=== PATIENT | male | born 1980 | race Two or more races ===

== ENCOUNTER 2018-12-31 12:58 | Emergency (ER) | payer OTHER ==
[~2018-12-31] VITALS: Ht 177.8 cm; Wt 92.1 kg
--- NOTE | 2018-12-31 13:20 | NUR ---
[id number], FROM [facility] C/O ABD PAIN SINCE SATURDAY, AND RECTAL BLEEDING. PT IS AMBULATORY, AOX4, HYPERTENSIVE, RR EVEN AND UNLABORED ON RA. SKIN INTACT, NO ACUTE DISTRESS NOTED. HOOKED TO MONITOR AND MADE COMFORTABLE. READY FOR EVAL.
[2018-12-31] MEDS ORDERED: IV NS 0.9% 1,000 ML BAG IV ONE (13:30)
[2018-12-31] MEDS ORDERED: PANTOPRAZOLE 40 MG VIAL IV ONE (13:30)
[2018-12-31] MEDS ORDERED: PANTOPRAZOLE 40 MG VIAL ONE (13:40)
[2018-12-31 13:53] LABS: CALCIUM, SERUM 9.3 mg/dL (8.5-10.1); CREATININE 0.9 mg/dL (0.6-1.3); POTASSIUM 3.5 mmol/L (3.5-5.1)
[2018-12-31 13:59] LABS: ALBUMIN 3.8 g/dL (3.4-5.0); BILIRUBIN,DIRECT 1.3 mg/dL (0.0-0.2); BILIRUBIN,TOTAL 6.2 mg/dL (0.2-1.0); TOTAL PROTEIN, SERUM 8.1 g/dL (6.4-8.2)
[2018-12-31 14:45] LABS: HEMATOCRIT 22 % (39-51); HEMOGLOBIN 7.7 g/dL (13.5-17.5); MEAN CORPUSCULAR HGB CONC 35 g/dl (31.0-36.0); MEAN CORPUSCULAR VOLUME 104 fL (80-96); PLATELET COUNT (AUTO) 95 /CMM (150-450); WHITE BLOOD COUNT (AUTO) 2.8 K/uL (4.3-11.0)
[2018-12-31] MEDS ORDERED: OCTREOTIDE 50 MCG/ML AMPUL SQ ONE (15:00)
[2018-12-31] MEDS ORDERED: OCTREOTIDE 50 MCG in IV NS 0.9% 50 ML IV ONE (15:00)
--- NOTE | 2018-12-31 15:11 | NUR ---
PT PROVIDED WITH ITEMS FOR ORAL CARE.
--- NOTE | 2018-12-31 15:17 | NUR ---
CALLED [facility]
[2018-12-31 15:27] LABS: BAND % (MANUAL) 2 % (0.0-5.0); LYMPHOCYTES % (MANUAL) 12 % (16-48); MONOCYTES % (MANUAL) 10 % (0-11.0); NEUTROPHILS % (MANUAL) 76 (42-76)
[2018-12-31] MEDS ORDERED: OCTREOTIDE 1,250 MCG in IV NS 0.9% 247.5 ML IV PRN (15:30)
--- NOTE | 2018-12-31 15:59 | NUR ---
TRANSFER INFO: GOING TO [facility] [phone] ER ACCEPTING MD JULIETTE MASCORRO PRN WILL BE HERE [id number]
--- NOTE | 2018-12-31 16:00 | NUR ---
Patient is resting comfortably in bed with eyes closed. Easily aroused. VSS
--- NOTE | 2018-12-31 17:00 | NUR ---
BLOOD TRANSFUSION STARTED IV RAC 18G AT 75ML/HR . VITALS ARE TEMP 98.3, HR 100, R 18, BP 137/93, PAIN 6/10 WHICH IS TOLERABLE FOR PT. WILL CONT TO MONITOR.
--- NOTE | 2018-12-31 17:15 | NUR ---
NO EVIDENCE OF TRANSFUSION REACTION AFTER FIRST 15 MIN. RATE INCREASED TO 300ML/HR PER CHARGE NURSE. VITALS ARE TEMP 98.2, HR 113, R 22, BP 143/70, PAIN 6/10. HR RATE > 100 IS PT BASELINE. WILL CONT TO MONITOR
--- NOTE | 2018-12-31 19:05 | NUR ---
2ND UNIT OF BLOOD STARTED. VSS. WILL MONITOR FOR NEXT 15 MIN
--- NOTE | 2018-12-31 20:12 | NUR ---
SPOKE WITH [facility] REGARDING CONTINUING IV INFUSION. THEY WILL SPEAK WITH ACCEPTING PHYSICIAN AND CALL US BACK.
--- NOTE | 2018-12-31 20:40 | NUR ---
BLOOD TRANSFUSION COMPLETE, PT DENEEN WELL. OCTREOTIDE CONTINUES INFUSING. VSS. WILL CONT TO MONITOR.
--- NOTE | 2018-12-31 20:40 | NUR ---
SPOKE WITH YOCASTA FROM [facility], CCT NEEDED FOR TRANSPORTATION. TRANSFERRING TO [facility] ED. ADMITTING PHYSICIAN: DR. SEGOVIA NUMBER FOR REPORT: [phone]
[2018-12-31 21:18] VITALS: BP 146/86
--- NOTE | 2018-12-31 21:18 | NUR ---
SPOKE WITH [facility] TO PROVIDE UPDATED VITALS. NEW ETA [phone]. PT NOTIFIED
--- NOTE | 2018-12-31 21:26 | NUR ---
REPORT GIVEN TO POURED PIPE MAKERGINNY CRAWLYE AT [facility]. OCTEOTRIDE WILL BE HELD DURING TRANSFER.
--- NOTE | 2018-12-31 22:07 | NUR ---
REPORT GIVEN TO [facility] AND [facility] NURSE FOR TRANSPORT.
== END 2018-12-31 22:17 | disposition short-term general hospital (02) ==
LOC: ER 13:02
DX: K74.60 Unspecified cirrhosis of liver (principal); K92.2 Gastrointestinal hemorrhage, unspecified; D61.818 Other pancytopenia; D64.9 Anemia, unspecified; Z60.2 Problems related to living alone
CPT/HCPCS: 36415; 36430; 80048; 80076; 83690; 85025; 85730; 86850; 86921; 96361; 96365; 96366; 96375; 99291; A4216; C9113; J2354 ×2; J7030 ×3; J7050; P9016-BL